=== PATIENT | female | born 2000 | race Caucasian/White ===

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

== ENCOUNTER → 2020-02-14 | Outpatient (CLI) | payer OTHER ==
[~2020-02-14] MED LIST: CYCL-707 PO; PRED5PAK PO
--- NOTE | 2020-02-15 03:05 | REP ---
REASON: Low back pain. Three views were obtained. Vertebral body height and alignment is within normal limits. The disc spaces are symmetric and well maintained. The pedicles are intact bilaterally. IMPRESSION: Unremarkable limited exam. Electronically Signed by Jad Yeh DO 02/15/2020 11:26 A
== END ==
LOC: M WUC 12:11
PROVIDERS: ATTEND Physician Assistant
DX: M54.5 Low back pain (principal)

== ENCOUNTER 2020-06-22 12:06 | Emergency (ER) | payer OTHER ==
[~2020-06-22] VITALS: Ht 165.1 cm; Wt 69.1 kg
[2020-06-22] MEDS ORDERED: PRENTAB9 PO (12:21)
[2020-06-22 12:55] LABS: HEMOGLOBIN 10.9 g/dl (12.0-15.5); MEAN CORPUSCULAR HGB CONC 30.3 g/dl (32.0-36.5); MEAN CORPUSCULAR VOLUME 76.1 fl (80.0-96.0); PLATELET COUNT, AUTOMATED 294 10^3/uL (150-450); RED BLOOD COUNT 4.73 10^6/uL (4.00-5.40)
[2020-06-22 13:24] LABS: BLOOD UREA NITROGEN 10 MG/DL (7-18); CALCIUM LEVEL 9.2 MG/DL (8.5-10.1); CARBON DIOXIDE LEVEL 27 MEQ/L (21-32); CHLORIDE LEVEL 109 MEQ/L (98-107); CREATININE FOR GFR 0.64 MG/DL (0.55-1.30); GLOMERULAR FILTRATION RATE > 60.0 (>60); GLUCOSE, FASTING 83 MG/DL (70-100); HCG, SERUM QUANTITATIVE 79 MIU/ML; POTASSIUM SERUM 4.1 MEQ/L (3.5-5.1); SODIUM LEVEL 140 MEQ/L (136-145)
[2020-06-22 13:27] LABS: BASO % 0.7 % (0.0-1.0); EOS % 0.7 % (0.0-3.0); LYMPH % 49.2 % (24.0-44.0); MONO # 0.5 10^3/uL (0.0-0.8); MONO % 8.8 % (0.0-5.0); NEUTROPHILS # 2.4 10^3/uL (1.5-8.5); NEUTROPHILS % 40.4 % (36.0-66.0)
[2020-06-22 13:32] LABS: PLATELET ESTIMATE NORMAL (NORMAL)
--- NOTE | 2020-06-22 14:07 | REP ---
INDICATION: vaginal bleeding. COMPARISON: None TECHNIQUE: Transvesical and transvaginal imaging FINDINGS: The uterus measures 6.5 x 3.1 x 4.8 cm. The parenchymal echo pattern is within normal limits. The endometrial echo complex measures 8 mm in greatest thickness. There is no evidence of an intrauterine gestational sac. The right ovary measures 3.3 x 1.8 x 2.4 cm and is within normal limits with an RI of 0.50. The left ovary measures 3.8 x 1.1 x 1.8 cm and is within normal limits with an RI 0.57. There is a trace amount of free fluid in the cul-de-sac likely physiologic. IMPRESSION: There is no evidence of an intrauterine or extrauterine . Findings are within normal limits. Follow-up is recommended if clinically relevant. <Electronically signed by Jad Yeh > 06/22/20 [id number]
[2020-06-22] MEDS ORDERED: FLAG500T PO (15:18)
[2020-06-22 15:39] LABS: CHLAMYDIA DNA AMPLIFICATION NEGATIVE (NEGATIVE); GC DNA AMPLIFICATION NEGATIVE (NEGATIVE)
[2020-06-22 16:00] VITALS: BP 101/60
== END 2020-06-22 16:07 | disposition home or self-care (01) ==
LOC: M ED 12:06
DX: O20.9 Hemorrhage in early pregnancy, unspecified (principal); O23.591 Infection of other part of genital tract in pregnancy, first trimester; Z3A.01 Less than 8 weeks gestation of pregnancy

== ENCOUNTER → 2020-06-24 | Outpatient (CLI) | payer OTHER ==
[~2020-06-24] MED LIST changes: +FLAG500T PO; +PRENTAB9 PO
== END ==
LOC: M PLALAB 09:24
PROVIDERS: ATTEND Physician Assistant
DX: Z32.00 Encounter for pregnancy test, result unknown (principal)

== ENCOUNTER 2020-12-06 13:22 | Emergency (ER) | payer OTHER ==
[~2020-12-06] VITALS: Ht 165.1 cm; Wt 67.3 kg
[2020-12-06] MEDS ORDERED: NS 1,000 ML IV ONE (14:10)
[2020-12-06] MEDS ORDERED: PROMETHAZINE INJ 25 MG/ML VIAL (J2550) IV ONE (14:10)
[2020-12-06 14:45] LABS: BASO % 0.3 % (0.0-1.0); HEMOGLOBIN 14.1 g/dl (12.0-15.5); LYMPH # 1.9 10^3/uL (1.5-5.0); LYMPH % 21.6 % (24.0-44.0); MEAN CORPUSCULAR HEMOGLOBIN 27.4 pg (27.0-33.0); MEAN CORPUSCULAR HGB CONC 33.6 g/dl (32.0-36.5); MEAN CORPUSCULAR VOLUME 81.6 fl (80.0-96.0); MONO # 0.7 10^3/uL (0.0-0.8); MONO % 7.3 % (2.0-8.0); NEUTROPHILS # 6.3 10^3/uL (1.5-8.5); NEUTROPHILS % 70.6 % (36.0-66.0); PLATELET COUNT, AUTOMATED 273 10^3/uL (150-450); RED BLOOD COUNT 5.15 10^6/uL (4.00-5.40); WHITE BLOOD COUNT 8.9 10^3/uL (4.0-10.0)
[2020-12-06 15:18] LABS: ALBUMIN 3.9 GM/DL (3.2-5.2); ALT/SGPT 25 U/L (12-78); BILIRUBIN,DIRECT 0.3 MG/DL (0.0-0.2); BILIRUBIN,TOTAL 0.9 MG/DL (0.2-1.0); BLOOD UREA NITROGEN 9 MG/DL (7-18); CALCIUM LEVEL 9.7 MG/DL (8.5-10.1); CARBON DIOXIDE LEVEL 21 MEQ/L (21-32); CHLORIDE LEVEL 105 MEQ/L (98-107); CREATININE FOR GFR 0.46 MG/DL (0.55-1.30); GLOMERULAR FILTRATION RATE > 60.0 (>60); GLUCOSE, FASTING 84 MG/DL (70-100); POTASSIUM SERUM 4.1 MEQ/L (3.5-5.1); SODIUM LEVEL 136 MEQ/L (136-145); TOTAL PROTEIN 8.1 GM/DL (6.4-8.2)
[2020-12-06] MEDS ORDERED: ONDANSETRON 4MG/2ML VIAL IV ONE (16:00)
[2020-12-06] MEDS ORDERED: REGL10TA6 PO (17:52)
[2020-12-06 18:40] VITALS: BP 106/64
== END 2020-12-06 18:43 | disposition home or self-care (01) ==
LOC: M ED 13:22
DX: O21.0 Mild hyperemesis gravidarum (principal); Z3A.14 14 weeks gestation of pregnancy
CPT/HCPCS: 80048; 80076; 81001; 85025; 87086; 96361; 96374; 96375; 99284; J2405

== ENCOUNTER 2021-06-09 07:34 | Inpatient (IN) | payer OTHER ==
[~2021-06-09] VITALS: Ht 165.1 cm; Wt 78.2 kg
[2021-06-09] VITALS (59 sets, daily range): BP systolic 82–142; BP diastolic 43–86
[~2021-06-09 07:34] MED LIST changes: +REGL10TA6 PO
[2021-06-09] MEDS ORDERED: HOME MED LIST COMPLETE! XX SCH (08:15)
[2021-06-09] MEDS ORDERED: OXYTOCIN DRIP 30 UNITS in IV 1 EA IV PRN ×4 (08:40)
--- OUTSIDE RECORDS SUMMARY | 2021-06-09 08:45 | CCD ---
Author Author [facility] Organization [facility] Address Unknown Phone Unavailable Support Name Relationship Address Phone UE Next Of Kin Unknown Unavailable KEEGAN GREEN Next Of Kin [address] [place] [address] [place] Next Of Kin [address] [place] [address] UN Next Of Kin Unknown Unavailable Gennaro CARVER CLEOPATRA Next Of Kin [address] [place] [address] ST Next Of Kin Unknown Unavailable KALANI BARRERA Next Of Kin [address] [place] [address] Re-disclosure Warning The records that you are about to access may contain information from federally-assisted alcohol or drug abuse programs. If such information is present, then the following federally mandated warning applies: This information has been disclosed to you from records protected by federal confidentiality rules (42 CFR part 2). The federal rules prohibit you from making any further disclosure of this information unless further disclosure is expressly permitted by the written consent of the person to whom it pertains or as otherwise permitted by 42 CFR part 2. A general authorization for the release of medical or other information is NOT sufficient for this purpose. The Federal rules restrict any use of the information to criminally investigate or prosecute any alcohol or drug abuse patient.The records that you are about to access may contain highly sensitive health information, the redisclosure of which is protected by Article 27-F of the [facility] Public Health law. If you continue you may have access to information: Regarding HIV / AIDS; Provided by facilities licensed or operated by the [facility] Office of Mental Health; or Provided by the [facility] Office for People With Developmental Disabilities. If such information is present, then the following [facility] mandated warning applies: This information has been disclosed to you from confidential records which are protected by state law. State law prohibits you from making any further disclosure of this information without the specific written consent of the person to whom it pertains, or as otherwise permitted by law. Any unauthorized further disclosure in violation of state law may result in a fine or fdc sentence or both. A general authorization for the release of medical or other information is NOT sufficient authorization for further disc losure. Family History Family Member Name Family Member Gender Family Member Status Date o f Status Description Data Source(s) Unknown Unknown Problem [facility] ([facility]) Unknown Unknown Problem [facility] ([facility] Medications No Information Insurance Providers Payer name Policy type / Coverage type Policy ID Covered republican ID Covered republican's relationship to joseph Policy Joseph Plan Information [employer] Commercial [id number] 2.0.1.294549.3.227.99.4877.7799.54096 Family Dependent [id number] [employer] Commercial [id number] 2.0.1.809764.3.227.99.4877.26830.0 Family Dependent [id number] [employer] Commercial [id number] 2.0.1.549423.3.227.99.4877.34176.0 Family Dependent [id number] [employer] Commercial [id number] 2.0.1.115818.3.227.99.4877.42939.0 Family Dependent [id number] [employer] Commercial [id number] 2.0.1.895062.3.227.99.4877.7799.86620 Family Dependent [id number] [employer] Commercial [id number] 2.840.1.731643.3.227.99.4877.01202.0 Family Dependent [id number] [employer] Commercial [id number] 2.840.1.361474.3.227.99.4877.13190.0 Family Dependent [id number] [employer] Commercial [id number] 2.0.1.808384.3.227.99.4877.7799.79047 Family Dependent [id number] [employer] Commercial [id number] 2.0.1.997378.3.227.99.4877.7799.06362 Family Dependent [id number] [employer] Commercial [id number] 2.0.1.021721.3.227.99.4877.17668.0 Family Dependent [id number] [employer] Commercial [id number] 2.0.1.644438.3.227.99.4877.7799.20468 Family Dependent [id number] [employer] Commercial [id number] Family Dependent [employer] Commercial [id number] 2.0.1.566628.3.227.99.4877.7799.42619 Family Dependent [id number] [employer] [id number] 2.0.1.978548.3.227.99.4877.46692.0 Family Dependent [id number] [employer] [id number] 2.0.1.895419.3.227.99.4877.82545.0 Family Dependent [id number] [employer] Commercial 41424 Family Dependent [employer] [id number] 2.0.1.775874.3.227.99.4877.7799.21482 Family Dependent [id number] [employer] [id number] 2.0.1.02743 3.3.227.99.4877.54862.0 Family Dependent [id number] [employer] [id number] ..1.071741.3.227.99.4877.7799.08002 Family Dependent [id number] [employer] [id number] ..1.664041.3.227.99 .4877.40335.0 Family Dependent [id number] [employer] [id number] ..1.991605.3.227.99 .4877.66612.0 Family Dependent [id number] [employer] [id number] ...004942.3.227.99.4877.7799.56866 Family Dependent [id number] [employer] 93569 Family Dependent [employer] [id number] ..1.983502.3.227.99 .4877.97475.0 Family Dependent [id number] [employer] [id number] ..1.475168.3.227.99.4877.7799.97079 Family Dependent [id number] [employer] [id number] .1.593774.3.227.99.4877.7799.09733 Family Dependent [id number] [employer] [id number] .1.579457.3.227.99 .4877.53579.0 Family Dependent [id number] [employer] [id number] .1.087421.3.227.99.4877.7799.60838 Family Dependent [id number] [employer] [id number] .1.513106.3.227.99.4877.7799.61732 Family Dependent [id number] [employer] [id number] 2..1.247470.3.227.99 .4877.60251.0 Family Dependent [id number] [employer] [id number] 2..1.244131.3.227.99 .4877.57511.0 Family Dependent [id number] [employer] [id number] 2..1.959596.3.227.99 .4877.90154.0 Family Dependent [id number] [employer] [id number] 2..1.565457.3.227.99 .4877.38578.0 Family Dependent [id number] [employer] [id number] 2..1.866582.3.227.99.4877.7799.35136 Family Dependent [id number] [employer] [id number] 2..1.021693.3.227.99.4877.7799.34810 Family Dependent [id number] [employer] 53703 Family Dependent [employer] [id number] ..1.580906.3.227.99 .4877.99180.0 Family Dependent [id number] [employer] [id number] ..1.072338.3.227.99 .4877.92609.0 Family Dependent [id number] [employer] [id number] 2..1.554543.3.227.99 .4877.18824.0 Family Dependent [id number] [employer] [id number] ..1.003163.3.227.99 .4877.02680.0 Family Dependent [id number] [employer] [id number] .0.1.355920.3.227.99 .4877.48804.0 Family Dependent [id number] [employer] [id number] ..1.080752.3.227.99.4877.7799.21756 Family Dependent [id number] [employer] [id number] .1.465951.3.227.99 .4877.68679.0 Family Dependent [id number] [employer] [id number] ..1.611153.3.227.99 .4877.35759.0 Family Dependent [id number] [employer] [id number] .1.977942.3.227.99 .4877.56290.0 Family Dependent [id number] [employer] [id number] .1.603168.3.227.99.4877.7799.70624 Family Dependent [id number] [employer] [id number] .1.399326.3.227.99.4877.7799.78695 Family Dependent [id number] [employer] [id number] .1.196598.3.227.99.4877.7799.66693 Family Dependent [id number] [employer] [id number] 2.1.205794.3.227.99.4 877.18277.0 Family Dependent [id number] [employer] [id number] 2.0.1.891032.3.227.99.4 877.7799.55611 Family Dependent [id number] [employer] [id number] 2.0.1.428288.3.227.99.4 877.7799.57714 Family Dependent [id number] [employer] [id number] 2.0.1.725084.3.227.99.4 877.7799.15052 Family Dependent [id number] [employer] [id number] .0.1.582255.3.227.99.4 877.7799.69004 Family Dependent [id number] [employer] [id number] 2.0.1.543036.3.227.99.4 877.21948.0 Family Dependent [id number] [employer] [id number] 44501 Family Dependent [id number] [employer] [id number] 2.0.1.256723.3.227.99.4 877.83733.0 Family Dependent [id number] [employer] [id number] 2.0.1.567196.3.227.99.4 877.40001.0 Family Dependent [id number] [employer] [id number] .0.1.771637.3.227.99.4 877.96010.0 Family Dependent [id number] [employer] [id number] .0.1.178607.3.227.99.4 877.7799.97950 Family Dependent [id number] [employer] [id number] 2.0.1.713660.3.227.99.4 877.7799.68264 Family Dependent [id number] [employer] [id number] 2.16.840.1.971099.3.227.99.4 877.42238.0 Family Dependent [id number] [employer] [id number] 2.16.840.1.279573.3.227.99.4 877.29921.0 Family Dependent [id number] [employer] [id number] 2.16.840.1.312394.3.227.99.4 877.52445.0 Family Dependent [id number] EXCELL I [id number] Self [id number] [facility] I [id number] Self [id number] [facility] Community Plan Health Maintenance Organization (HMO) [id number] 22 2.16.840.1.818380.3.227.99.4877.82448.0 Family Dependent [id number] MEDICAID [id number] Self [id number] [facility] Community Plan Health Maintenance Organization (HMO) [id number] 22 2.16.840.1.039964.3.227.99.4877.66143.0 Family Dependent [id number] [facility] Community Plan Health Maintenance Organization (HMO) [id number] 22 2.16.840.1.066062.3.227.99.4877.68764.0 Family Dependent [id number] [facility] Community Plan Health Maintenance Organization (HMO) [id number] 22 2.16.840.1.491600.3.227.99.4877.34374.0 Family Dependent [id number] [facility] Community Plan Health Maintenance Organization (HMO) [id number] 22 2.16.840.1.175153.3.227.99.4877.7799.72138 Family Dependent [id number] [facility] Community Plan Health Maintenance Organization (HMO) [id number] 22 2.16.840.1.139462.3.227.99.4877.7799.73436 Family Dependent [id number] [facility] Community Plan Health Maintenance Organization (HMO) [id number] 22 2.16.840.1.144677.3.227.99.4877.7799.54021 Family Dependent [id number] [facility] Community Plan Health Maintenance Organization (HMO) [id number] 22 2.16.840.1.118241.3.227.99.4877.7799.32116 Family Dependent [id number] [facility] Community Plan Health Maintenance Organization (O) [id number] 22 2.16.840.1.024352.3.227.99.4877.13246.0 Family Dependent [id number] [facility] Community Plan Health Maintenance Organization (HMO) [id number] 22 2.16.840.1.786020.3.227.99.4877.74562.0 Family Dependent [id number] [facility] Community Plan Health Maintenance Organization (O) [id number] 22 2.16.840.1.076697.3.227.99.4877.7799.99150 Family Dependent [id number] [facility] Community Plan Health Maintenance Organization (O) [id number] 22 2.16.840.1.852836.3.227.99.4877.57245.0 Family Dependent [id number] [facility] Community Plan Health Maintenance Organization (HMO) [id number] 22 2.16.840.1.291174.3.227.99.4877.57810.0 Family Dependent [id number] [facility] Community Plan Health Maintenance Organization (HMO) [id number] 22 2.16.840.1.450978.3.227.99.4877.7799.13294 Family Dependent [id number] [facility] Community Plan Health Maintenance Organization (O) [id number] Family Dependent Medicaid-Pcap Medicaid [id number] 2.16.840.1.296981.3.227.99.4877.7 799.80685 Self [id number] Medicaid-Pcap Medicaid [id number] 2.16.840.1.519340.3.227.99.4877.1898 4.0 Self [id number] Medicaid-Pcap Medicaid [id number] 2.16.840.1.477561.3.227.99.4877.1898 4.0 Self [id number] Medicaid-Pcap Medicaid [id number] 2.16.840.1.595182.3.227.99.4877.1898 4.0 Self [id number] Medicaid-Pcap Medicaid [id number] 2.16.840.1.899002.3.227.99.4877.1898 4.0 Self [id number] Medicaid-Pcap Medicaid [id number] Self Medicaid-Pcap Medicaid [id number] 2.16.840.1.803935.3.227.99.4877.7 799.43782 Self [id number] Medicaid-Pcap Medicaid [id number] 2.16.840.1.120480.3.227.99.4877.1898 4.0 Self [id number] Medicaid-Pcap Medicaid [id number] 2.16.840.1.458002.3.227.99.4877.7 799.22762 Self [id number] Medicaid-Pcap Medicaid [id number] 2.16840.1.189610.3.227.99.4877.1898 4.0 Self [id number] Medicaid-Pcap Medicaid [id number] 2.16.840.1.953940.3.227.99.4877.1898 4.0 Self [id number] Medicaid-Pcap Medicaid [id number] 2.16.840.1.193613.3.227.99.4877.7 799.11049 Self [id number] Medicaid-Pcap Medicaid [id number] 2.16.840.1.797572.3.227.99.4877.7 799.75850 Self [id number] Medicaid-Pcap Medicaid [id number] 2.16.840.1.553495.3.227.99.4877.7 799.88109 Self [id number] Medicaid-Pcap Medicaid [id number] 2.16.840.1.103762.3.227.99.4877.1898 4.0 Self [id number] [facility] Community Plan Health Maintenance Organization (HMO) [id number] 22 2.16.840.1.551025.3.227.99.4877.57606.0 Self [id number] [facility] Community Plan Health Maintenance Organization (HMO) 104 542 Self [facility] Community Plan Health Maintenance Organization (HMO) [id number] 22 2.16.840.1.081396.3.227.99.4877.25983.0 Self [id number] [facility] Community Plan Health Maintenance Organization (HMO) [id number] 22 2.16.840.1.598738.3.227.99.4877.05468.0 Self [id number] [facility] Community Plan Health Maintenance Organization (HMO) [id number] 22 2.16.840.1.151129.3.227.99.4877.01712.0 Self [id number] [facility] COMMUNITY PLAN [facility] [id number] MO2 [id number] [facility] Community Plan Health Maintenance Organization (HMO) [id number] 22 2.16.840.1.656657.3.227.99.4877.7799.89568 Self [id number] [facility] Community Plan Health Maintenance Organization (HMO) [id number] 22 2.16.840.1.871165.3.227.99.4877.20864.0 Self [id number] [facility] Community Plan Health Maintenance Organization (HMO) [id number] 22 2.16.840.1.539254.3.227.99.4877.77844.0 Self [id number] [facility] Community Plan Health Maintenance Organization (HMO) [id number] 22 2.16.840.1.829973.3.227.99.4877.7799.19759 Self [id number] [facility] Community Plan Health Maintenance Organization (HMO) [id number] 22 2.16.840.1.704884.3.227.99.4877.09531.0 Self [id number] [facility] Community Plan Health Maintenance Organization (HMO) [id number] 22 2.16.840.1.423242.3.227.99.4877.7799.30539 Self [id number] [facility] Community Plan Health Maintenance Organization (HMO) [id number] 22 2.16.840.1.482376.3.227.99.4877.7799.46426 Self [id number] [facility] Comm Plan Medicaid F [id number] SELF [id number] [facility] Community Plan Health Maintenance Organization (HMO) [id number] 22 2.16.840.1.986738.3.227.99.4877.7799.85668 Self [id number] [facility] Community Plan Health Maintenance Organization (HMO) [id number] 22 2.16.840.1.655363.3.227.99.4877.52295.0 Self [id number] [facility] Comm Plan Medicaid F [id number] SELF [id number] [facility] [id number] [facility] Community Plan Health Maintenance Organization (HMO) [id number] 22 2.16.840.1.733329.3.227.99.4877.7799.76716 Self [id number] [employer] [id number] 2.0.1.169325.3.227.99.4 877.76960.0 Self [id number] [employer] [id number] 2.0.1.239865.3.227.99.4 877.82851.0 Self [id number] [employer] [id number] 2.0.1.317635.3.227.99.4 877.7799.02773 Self [id number] [employer] [id number] 2.840.1.705471.3.227.99.4 877.28820.0 Self [id number] [employer] [id number] 2.0.1.989212.3.227.99.4 877.33491.0 Self [id number] [employer] [id number] 2.840.1.053618.3.227.99.4 877.7799.58689 Self [id number] [employer] [id number] 2.0.1.396879.3.227.99.4 877.09142.0 Self [id number] [employer] [id number] .0.1.900234.3.227.99.4 877.7799.43533 Self [id number] [employer] [id number] .0.1.204323.3.227.99.4 877.7799.82439 Self [id number] [employer] [id number] .0.1.111021.3.227.99.4 877.25376.0 Self [id number] [employer] [id number] ..1.161313.3.227.99.4 877.7799.14199 Self [id number] [employer] [id number] .1.451594.3.227.99.4 877.05967.0 Self [id number] EXCE[employer] I [id number] Self [id number] [employer] [id number] .1.880539.3.227.99.4 877.02579.0 Self [id number] [employer] [id number] .1.973006.3.227.99.4 877.7799.85251 Self [id number] [employer] .1.209756.3.227.99.4877.7799 .24751 Self [employer] [id number] ..1.884828.3.227.99.4 877.80653.0 Self [id number] [employer] [id number] .1.974464.3.227.99.4 877.51111.0 Self [id number] [employer] [id number] 2.16.840.1.306768.3.227.99.4 877.84040.0 Self [id number] [employer] [id number] 2.0.1.095432.3.227.99.4 877.70294.0 Self [id number] [employer] [id number] 2.0.1.239447.3.227.99.4 877.83610.0 Self [id number] [employer] [id number] 2.0.1.376177.3.227.99.4 877.28649.0 Self [id number] [employer] [id number] 2..1.999643.3.227.99.4 877.99629.0 Self [id number] [employer] [id number] 2..1.397847.3.227.99.4 877.34938.0 Self [id number] [employer] [id number] ..1.477133.3.227.99.4 877.7799.93978 Self [id number] [employer] [id number] 2..1.141345.3.227.99.4 877.7799.97522 Self [id number] [employer] [id number] ..1.283141.3.227.99.4 877.7799.68468 Self [id number] [employer] [id number] ..1.891890.3.227.99.4 877.7799.79260 Self [id number] [employer] [id number] 2..1.857810.3.227.99.4 877.7799.96280 Self [id number] [employer] [id number] 2.16.840.1.903771.3.227.99.4 877.7799.88322 Self [id number] [employer] Health Maintenance Organization (HMO) [id number] 00 2.16.840.1.202691.3.227.99.4877.7799.81855 Self [id number] [employer] Man[employer] Health Maintenance Organization (HMO) [id number] 00 2.16.840.1.958424.3.227.99.4877.99007.0 Self [id number] [employer] Managed Care Health Maintenance Organization (HMO) [id number] 00 2.16.840.1.889413.3.227.99.4877.7799.82257 Self [id number] [employer] Managed Care Health Maintenance Organization (HMO) [id number] 00 2.16.840.1.851917.3.227.99.4877.95049.0 Self [id number] [employer] Man[employer] Care Health Maintenance Organization (HMO) [id number] 00 2.16.840.1.814895.3.227.99.4877.7799.84052 Self [id number] [employer] Man[employer] Care Health Maintenance Organization (HMO) [id number] 00 2.16.840.1.553200.3.227.99.4877.58076.0 Self [id number] [employer] Man[employer] Care Health Maintenance Organization (HMO) [id number] 00 2.16.840.1.015318.3.227.99.4877.61819.0 Self [id number] [employer] Man[employer] Care Health Maintenance Organization (HMO) [id number] 00 2.16.840.1.329612.3.227.99.4877.34437.0 Self [id number] [employer] Managed Care Health Maintenance Organization (HMO) [id number] 00 2.16.840.1.326784.3.227.99.4877.93749.0 Self [id number] [employer] Managed Care Health Maintenance Organization (HMO) [id number] 00 2.16.840.1.188185.3.227.99.4877.54303.0 Self [id number] MVP Managed Care Health Maintenance Organization (HMO) [id number] 00 2.16840.1.552244.3.227.99.4877.57505.0 Self [id number] [employer] [id number] 2.840.1.604651.3.227.99 .4877.78891.0 Self [id number] [employer] [id number] 2.0.1.497808.3.227.99 .4877.67441.0 Self [id number] Blue Cross Blue Shield P [id number] SELF [id number] [employer] YOE 2.840.1.561270.3.227.99.4 877.41615.0 Family Dependent YOE [employer] YOE 2.0.1.996243.3.227.99.4 877.53236.0 Family Dependent YOE [employer] YOE 2.0.1.596186.3.227.99.4 877.19762.0 Family Dependent YOE [id number] [employer] YOE 2.840.1.479312.3.227.99.4 877.87415.0 Family Dependent YOE MVP [facility] [id number] SP [id number] [employer] BCBS B [id number] S VYB [id number] [employer] [place] 306/806 [id number] SP [id number] [employer] YOE 2.0.1.097949.3.227.99.4 877.7799.18527 Family Dependent Cleopatra Carver YOE [employer] Commercial [id number] 2.840.1.418835.3.227.99.4877.7799.99128 Family Dependent Cleopatra Carver [id number] [employer] Commercial [id number] .1.539616.3.227.99.4877.7799.04327 Family Dependent Cleopatra Carver [id number] [employer] [id number] .1.496926.3.227.99.4877.7799.51384 Family Dependent Cleopatra Carver [id number] [employer] [id number] .1.823151.3.227.99.4 877.7799.98664 Family Dependent Cleopatra Carver [id number] Medicaid-Pcap Medicaid [id number] .1.918702.3.227.99.4877.7 799.69969 Self [id number] [facility] Community Plan Health Maintenance Organization (HMO) [id number] 22 .1.440426.3.227.99.4877.7799.13564 Self [id number] [employer] [id number] .1.051112.3.227.99.4 877.7799.18018 Self [id number] [facility] COMMUNITY PLAN [facility] [id number] SP [id number] [facility] [id number] [facility] [id number] [employer] [id number] 34277 Family Dependent [id number] [facility] [place] [facility] Commercial YOE .1.259838.3.227.99.4 [id number] Family Dependent YOE BCBS CHILD HEALTH PLUS [id number] SP [id number] [place] 306/806 [id number] SP [id number] SELF PAY ONLY [id number] SP [id number] BS Child Health Plus Health Maintenance Organization (HMO) [id number] Self [id number] [place] 306/806 [id number] SP [id number] BCBS/[employer] Medigap Part B [id number] Self [id number] BCBS [place] HMO [id number] SP [id number] [facility] COMMUNITY PLAN [id number] SP [id number] MEDICAID [place] [id number] SP [id number] [facility] COMMUNITY PLAN UNAVAILABLE UNAVAILABLE [facility] COMM PLAN [place] W [id number] S [id number] [facility] [place] [facility] Commercial YOE 2..1.829107.3.227.99.4 [id number] Family Dependent YOE Medicaid [facility] Healthcare S D [id number] SELF [id number] MEDICAID [id number] SP [id number] HMO BLUE [id number] SP [id number] [facility] [place] [facility] O [id number] S [id number] [facility] [place] [employer]P Commercial YOE [id number] [id number] Family Dependent YOE [place] [facility] Commercial YOE 2.0.1.656464.3.227.99.4 [id number] Family Dependent YOE [facility] [place] [facility] Commercial YOE 2.0.1.055622.3.227.99.4 [id number] Family Dependent YOE HMO BLUE [id number] SP [id number] [place] [facility] SP HMO BLUE [id number] SP [id number] [facility] [place] CHP Commercial YOE 2.0.1.471345.3.227.99.4 [id number] Family Dependent YOE BS [place] [facility]P Commercial YOE 2.0.1.339723.3.227.99.4 [id number] Family Dependent YOE EXCELLUS BCBS B [id number] S [id number] O UNAVAILABLE UNAVAILA BLE [place] [employer] [facility] O [id number] C [id number] BS [place] P Commercial YOE [id number]9.4 [id number] Family Dependent YOE BC/BS OF [place] P [id number] C ZF [id number] BS [place] P Commercial YOE [id number] Family Dependent YOE BS [place] P [employer] YOE [phone] Family Dependent YOE Problems, Conditions, and Diagnoses No Information Surgeries/Procedures No Information Results No Information Social History No Information
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
[2021-06-09 10:57] LABS: HEMATOCRIT 36.8 % (36.0-47.0); HEMOGLOBIN 11.8 g/dl (12.0-15.5); MEAN CORPUSCULAR HEMOGLOBIN 25.2 pg (27.0-33.0); MEAN CORPUSCULAR HGB CONC 32.1 g/dl (32.0-36.5); MEAN CORPUSCULAR VOLUME 78.6 fl (80.0-96.0); PLATELET COUNT, AUTOMATED 291 10^3/uL (150-450); RED BLOOD COUNT 4.68 10^6/uL (4.00-5.40); WHITE BLOOD COUNT 10.3 10^3/uL (4.0-10.0)
--- NOTE | 2021-06-09 13:24 | IPNPDOC ---
Obstetrical Progress Note Date of Service Jun 09, 2021 Subjective Patient feeling contractions, uncomfortable with pain. Otherwise is tolerating labor and has no complaints. Objective Vital Signs Date Time Temp Pulse Resp B/P (MAP) Pulse Ox O2 Delivery O2 Flow Rate FiO2 06/09/21 12:08 79 16 136/66 (89) 06/09/21 11:40 97.8 Assessment Heart Rate (FHR): 130 Variability: Moderate Accelerations: Positive Decelerations: None Heart Rate Tracing: Category I Tocometer Contractions: Yes Frequency: regular, every 3-7 min. Sterile Vaginal Examination Dilation: 4 cm Effacement (%): 50% Station: -1 Cervical Consistency: Soft Cervical Position: Middle Postion/Presentation: Cephalic presentation Assessment and Plan Age: 21 : 4 Term: 0 Pre-term: 0 Abortions: 3 Livin Weeks & Days 40+5 Status: Reassuring Group B Streptococcus: Negative Anticipate: Vaginal Delivery Additional Comments Discussed pain control in labor including IV pain medications and epidural; she desires an epidural so we will contact anesthesia. Routine intrapartum care reevaluate labor in 4-6 hours or sooner as needed anticipate vaginal delivery. ALESHIA OMER DO Jun 09, 2021 13:24
[2021-06-09] MEDS ORDERED: LR 500 ML IV ONE (13:40)
[2021-06-09] MEDS ORDERED: OXYTOCIN DRIP 30 UNITS in IV 1 EA IV SCH (13:40)
[2021-06-09] MEDS ORDERED: LR 1,000 ML IV SCH (13:40)
[2021-06-09] MEDS ORDERED: FENTANYL 2MCG/ML ROPIVACAINE 0.2% IN 0.9% NACL 100ML IVBAG As Ordered ONE (14:04)
[2021-06-09] MEDS ORDERED: LACTATED RINGER'S 1000 ML IV PRN (14:15)
[2021-06-09] MEDS ORDERED: NALOXONE INJ 0.4MG/1ML VIAL (J2310 PER 1MG) IV PRN (14:15)
[2021-06-09] MEDS ORDERED: REFRIGERATOR IV KEYS XX PRN (14:15)
[2021-06-09] MEDS ORDERED: EPIDURAL COMMENT XX SCH (14:15)
[2021-06-09] MEDS ORDERED: ONDANSETRON 4MG/2ML VIAL IV PRN (14:15)
[2021-06-09] MEDS ORDERED: diphenhydrAMINE 50MG/ML VIAL (J1200) IV PRN (14:15)
[2021-06-09] MEDS ORDERED: EPIDURAL/PCA KEYS XX PRN (14:15)
[2021-06-09] MEDS: LR 1,000 ML IV SCH ×2 (14:41→17:51)
[2021-06-09] MEDS: FENTANYL/ROPIVACAINE/NACL BAG 100 ML EPIDURAL SCH ×2 (14:42→21:34)
[2021-06-09] MEDS: ePHEDrine SULFATE 25 MG/5 ML(5MG/ML) SYRINGE IV PRN ×5 (15:08→16:00)
[2021-06-09] MEDS ORDERED: ePHEDrine SULFATE 25 MG/5 ML(5MG/ML) SYRINGE IVP PRN (16:10)
[2021-06-09] MEDS ORDERED: LACTATED RINGER'S 1000 ML IV ONE (16:15)
--- NOTE | 2021-06-09 19:37 | IPNPDOC ---
Obstetrical Progress Note Date of Service Jun 09, 2021 Subjective Mehnaz Gibson comfortable with contractions, is aware of them but not painful. Otherwise feels well and denies any complaints. Objective Vital Signs Date Time Temp Pulse Resp B/P (MAP) Pulse Ox O2 Delivery O2 Flow Rate FiO2 06/09/21 18:32 97.9 06/09/21 18:14 95 117/68 (84) 06/09/21 15:16 18 Assessment Heart Rate (FHR): 140 Variability: Moderate Accelerations: Positive Decelerations: None Heart Rate Tracing: Category I Tocometer Contractions: Yes Frequency: regular, every 3-7 min. Sterile Vaginal Examination Dilation: 7 cm Effacement (%): 90% Station: -1 Cervical Consistency: Soft Cervical Position: Anterior Postion/Presentation: Cephalic presentation Assessment and Plan Age: 20 : 4 Term: 0 Pre-term: 0 Abortions: 3 Livin Weeks & Days 40+5 Status: Reassuring Group B Streptococcus: Negative Anticipate: Vaginal Delivery Additional Comments Patient making progress now on pitocin of 10. Cervix now 7cm, 90% effaced. Will continue pitocin and reevaluate labor in 2-4 hours or sooner as needed. We discussed r/b/a to amniotomy including cord prolapse and emergent for future reference. Routine intrapartum care consider artificial rupture of membranes if progress slows/stops anticipate vaginal delivery ALESHIA OMER DO Jun 09, 2021 19:37
[2021-06-10] VITALS (14 sets, daily range): BP systolic 102–133; BP diastolic 56–80
--- NOTE | 2021-06-10 00:54 | DNPDOC ---
[facility] Delivery Note Delivery Note DATE OF DELIVERY: 09JUN2021 PREDELIVERY DIAGNOSIS: 40+5 weeks' gestation and labor. POST DELIVERY DIAGNOSIS: Delivered. PROCEDURE: Spontaneous vaginal delivery AUTOMATION DESIGN ENGINEER: Jared Barrett DO ANESTHESIA: epidural ESTIMATED BLOOD LOSS: 450 mL. FINDINGS: 8 pound 6 ounce F infant, Score 9/9, retained placenta with manual extraction DELIVERY SUMMARY: Called to the room by nursing as the head was . Over the next several pushes the head delivered and restituted DIANE. The anterior shoulder delivered without difficulty followed by the corpus. The was placed on the maternal chest and dried/stimulated/bulb suction as needed. After one minute delay the cord was clamped and cut by the father of the baby. A examination of the perineum revealed no midline tears and hemostasis was noted; I was called to another room for imminent delivery and requested the nurse to monitor Ms. Gibson for hemorrhage in my absence. After about 20 minutes in the other delivery I returned. Gentle cord traction failed to deliver the placenta and I felt the beginnings of crepitus along the cord. After 30 minutes I informed the Ms. Gibson that I would be attempting manual extraction of the placenta. Her epidural seemed adequate. I felt a plane that was encouraging to separate the placenta however could not reach the fundus due to patient discomfort. Anesthesia was consulted and pain control achieved. On a second attempt I could follow the cleavage plane all the way to the fundus and removed the placenta apparently intact. Some trailing membranes were noted and removed with ring forceps. Detailed review on the delivery table was performed immediately and there appeared to be no missing cotyledons. A transabdominal ultrasound was performed at the bedside revealing no apparent retained products. Pitocin was started and bimanual massage notd firm uterus with hemostasis. Perineal inspection revealed bilateral labial abrasions hemostatic. The maternal- dyad was noted to be in good condition. All counts were correct. DO NEGRA Deshpande BRADLEY J. DO Jun 10, 2021 00:54
[2021-06-10] MEDS ORDERED: MEASLES,MUMPS,RUBELLA VACCINE INJ (MMR-II) (90707) SC SCH (01:15)
[2021-06-10] MEDS ORDERED: ONDANSETRON 4MG/2ML VIAL IV PRN (01:15)
[2021-06-10] MEDS ORDERED: RHOGAM 300 MCG (1500 IU) INJ (J2790) IM SCH (01:15)
[2021-06-10] MEDS ORDERED: LR 1,000 ML IV SCH (01:15)
[2021-06-10] MEDS ORDERED: DIBUCAINE 1% OINTMENT 30GM TOP PRN (01:15)
[2021-06-10] MEDS ORDERED: PROMETHAZINE 25 MG TAB PO PRN (01:15)
[2021-06-10] MEDS ORDERED: DOCUSATE SODIUM 100MG CAPSULE PO PRN (01:15)
[2021-06-10] MEDS: ACETAMINOPHEN 500 MG TAB PO SCH ×4 (02:08→18:07)
[2021-06-10] MEDS: IBUPROFEN 800 MG TAB PO SCH ×3 (03:56→18:07)
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
[2021-06-10] MEDS: PRENATAL VITAMINS CHEWABLE TABLET PO SCH (08:00)
[2021-06-11] MEDS: ACETAMINOPHEN 500 MG TAB PO SCH ×2 (01:02→07:39)
[2021-06-11] MEDS: IBUPROFEN 800 MG TAB PO SCH ×2 (02:38→11:21)
[2021-06-11 06:00] VITALS: BP 108/61
--- NOTE | 2021-06-11 07:12 | OBDS ---
[facility] Obstetrical Discharge Sum. Obstetrical Discharge Summary VDRL: ABO Blood Group (o) Rh: Positive Rubella: Immune A/P, Post Course List any complications Admission diagnosis: 40+5 weeks' gestation and labo Discharge diagnosis: , retained placenta with manual extraction Condition at Discharge: STABLE Discharge Instructions: Home Activity: PELVIC REST Diet: REG Medications: AT HOME Follow-up: 6WK PP Other: Mehnaz Gibson is a 20-year-old 4 now Para 1031 status post uncomplicated spontaneous vaginal delivery at 40+5 weeks' at approximately 2332 hours on 09JUN2021 of a female 8 pounds 6 ounces (3810 grams) with post vaginal laceration and repair, doing well day # 2. She has been ambulating, voiding spontaneously without issue and tolerating regular diet. Breast feeding without issue. Reports lochia is like a normal period. Denies fevers, uterine tenderness or foul vaginal discharge. DATE OF DELIVERY: 09JUN2021 PREDELIVERY DIAGNOSIS: 40+5 weeks' gestation and labor. POST DELIVERY DIAGNOSIS: Delivered. PROCEDURE: Spontaneous vaginal delivery FASHION EDITOR: Jared Barrett DO ANESTHESIA: epidural ESTIMATED BLOOD LOSS: 450 mL. FINDINGS: 8 pound 6 ounce F , Score 9/9, retained placenta with manual extraction FRANSISCA BREWER MD Jun 11, 2021 07:12
[2021-06-11 08:08] LABS: HEMATOCRIT 30.5 % (36.0-47.0); MEAN CORPUSCULAR HEMOGLOBIN 24.9 pg (27.0-33.0); MEAN CORPUSCULAR HGB CONC 31.1 g/dl (32.0-36.5); MEAN CORPUSCULAR VOLUME 80.1 fl (80.0-96.0); PLATELET COUNT, AUTOMATED 275 10^3/uL (150-450); RED BLOOD COUNT 3.81 10^6/uL (4.00-5.40); WHITE BLOOD COUNT 11.8 10^3/uL (4.0-10.0)
[2021-06-11 08:18] LABS: HEMOGLOBIN 9.5 g/dl (12.0-15.5)
[2021-06-11] MEDS: PRENATAL VITAMINS CHEWABLE TABLET PO SCH (08:44)
== END 2021-06-11 13:05 | disposition home or self-care (01) | DRG 807 ==
LOC: M LDO 07:34 → M LDI 08:42 → M OBS 06-10 03:22
PROVIDERS: ADMIT Obstetrics & Gynecology; ATTEND Obstetrics & Gynecology
PROC: 10D17Z9 Manual Extraction of Products of Conception, Retained, Via Natural or Artificial Opening (ICD-10-PCS; principal; 2021-06-09)
PROC: 10E0XZZ Delivery of Products of Conception, External Approach (ICD-10-PCS; 2021-06-09)
DX: O48.0 Post-term pregnancy (principal); Z37.0 Single live birth; Z3A.40 40 weeks gestation of pregnancy; O73.0 Retained placenta without hemorrhage

== ENCOUNTER 2021-07-22 13:50 | Emergency (ER) | payer OTHER ==
[~2021-07-22] VITALS: Ht 165.1 cm; Wt 63.6 kg
[2021-07-22 16:20] LABS: BASO % 0.1 % (0.0-1.0); EOS % 0.1 % (0.0-3.0); HEMATOCRIT 39.5 % (36.0-47.0); HEMOGLOBIN 12.2 g/dl (12.0-15.5); LYMPH # 1.4 10^3/uL (1.5-5.0); LYMPH % 11.3 % (24.0-44.0); MEAN CORPUSCULAR HEMOGLOBIN 24.1 pg (27.0-33.0); MEAN CORPUSCULAR HGB CONC 30.9 g/dl (32.0-36.5); MEAN CORPUSCULAR VOLUME 77.9 fl (80.0-96.0); MONO # 0.6 10^3/uL (0.0-0.8); MONO % 4.4 % (2.0-8.0); NEUTROPHILS # 10.4 10^3/uL (1.5-8.5); NEUTROPHILS % 83.5 % (36.0-66.0); PLATELET COUNT, AUTOMATED 305 10^3/uL (150-450); RED BLOOD COUNT 5.07 10^6/uL (4.00-5.40); WHITE BLOOD COUNT 12.4 10^3/uL (4.0-10.0)
[2021-07-22 16:55] LABS: ALBUMIN 3.9 GM/DL (3.2-5.2); ALT/SGPT 49 U/L (12-78); BILIRUBIN,DIRECT 0.2 MG/DL (0.0-0.2); BILIRUBIN,TOTAL 0.5 MG/DL (0.2-1.0); BLOOD UREA NITROGEN 9 MG/DL (7-18); CALCIUM LEVEL 9.4 MG/DL (8.5-10.1); CARBON DIOXIDE LEVEL 27 MEQ/L (21-32); CHLORIDE LEVEL 106 MEQ/L (98-107); CREATININE FOR GFR 0.51 MG/DL (0.55-1.30); GLOMERULAR FILTRATION RATE > 60.0 (>60); GLUCOSE, FASTING 89 MG/DL (70-100); LIPASE 85 U/L (73-393); POTASSIUM SERUM 4.4 MEQ/L (3.5-5.1); SODIUM LEVEL 140 MEQ/L (136-145); TOTAL PROTEIN 8.1 GM/DL (6.4-8.2)
[2021-07-22] MEDS ORDERED: GI COCKTAIL 50ML BTL(HYOSCYAMINE/MAALOX/LIDOCAINE VISCOUS)(1:3:1) PO ONE (18:10)
[2021-07-22] MEDS ORDERED: PANTOPRAZOLE 40MG VIAL (C9113 PER 1) IV ONE (18:10)
[2021-07-22] MEDS ORDERED: MORPHINE 4 MG/ML 1ML VIAL/SYRINGE (J2270) IV ONE (18:10)
[2021-07-22] MEDS ORDERED: ISOVUE-370 76% 100ML VIAL As Ordered ONE (18:25)
[2021-07-22 18:32] LABS: HCG, SERUM QUALITATIVE NEGATIVE (NEGATIVE)
[2021-07-22 19:06] LABS: CK-MB VALUE MASS < 1.0 NG/ML (<3.6); CPK CREATINE PHOSPHOKINASE 53 U/L (26-192); MB/CK RELATIVE INDEX 1.89 (< OR =4)
--- NOTE | 2021-07-22 20:06 | REPVR ---
PROCEDURE INFORMATION: Exam: CTA Chest With Contrast Exam date and time: 07/22/2021 6:54 PM Age: 21 years old Clinical indication: Pain; Angina pectoris; Additional info: Pleuritic chest pain TECHNIQUE: Imaging protocol: Computed tomographic angiography of the chest with contrast. 3D rendering (Not supervised by radiologist): MIP and/or 3D reconstructed images were created by the technologist. Radiation optimization: All CT scans at this facility use at least one of these dose optimization techniques: automated exposure control; mA and/or kV adjustment per patient size (includes targeted exams where dose is matched to clinical indication); or iterative reconstruction. Contrast material: ISOVUE 370; Contrast volume: 100 ml; Contrast route: INTRAVENOUS (IV); COMPARISON: CR Chest, 2 view PA, Lat 10/13/2018 10:09 PM FINDINGS: Pulmonary arteries: There is no evidence of filling defects within the pulmonary arterial circulation to suggest pulmonary embolism. Aorta: No aortic aneurysm. No aortic dissection. Lungs: No lung consolidation. Pleural spaces: No pleural effusion or pneumothorax. Heart: Unremarkable. No cardiomegaly. No pericardial effusion. Mediastinal space: Probable residual thymic tissue in the anterior mediastinum. Lymph nodes: No mediastinal or hilar lymphadenopathy. Intraperitoneal space: Upper abdominal organs will be described on the abdominopelvic CT report. Bones/joints: Unremarkable. No acute fracture. Soft tissues: Unremarkable. IMPRESSION: No evidence of pulmonary emboli or pneumonia. Electronically signed by: Keily Kulkarni On 07/22/2021 20:05:06 PM
--- NOTE | 2021-07-22 20:09 | REPVR ---
PROCEDURE INFORMATION: Exam: CT Abdomen And Pelvis With Contrast Exam date and time: 07/22/2021 6:54 PM Age: 21 years old Clinical indication: Abdominal pain; Epigastric; Additional info: Epigastric pain TECHNIQUE: Imaging protocol: Computed tomography of the abdomen and pelvis with contrast. Radiation optimization: All CT scans at this facility use at least one of these dose optimization techniques: automated exposure control; mA and/or kV adjustment per patient size (includes targeted exams where dose is matched to clinical indication); or iterative reconstruction. Contrast material: ISOVUE 370; Contrast volume: 100 ml; Contrast route: INTRAVENOUS (IV); COMPARISON: CT ABD PELVIS W/O CONTRAST 09/06/2016 10:29 PM FINDINGS: Lungs: No lesions of the lung bases. Liver: There are no focal liver lesions although there may be mild periportal edema. Gallbladder and bile ducts: Small gallstones are seen layering in the dependent portion of the gallbladder. Pancreas: The pancreas is normal. Spleen: The spleen is unremarkable. Adrenal glands: The adrenal glands are unremarkable. Kidneys and ureters: The kidneys are unremarkable. Stomach and bowel: There is no evidence of intestinal obstruction. Appendix: No evidence of appendicitis. Intraperitoneal space: Unremarkable. No free air. No significant fluid collection. Vasculature: The aorta is unremarkable. Lymph nodes: Unremarkable. No enlarged lymph nodes. Urinary bladder: Urinary bladder is decompressed and therefore not well assessed. Reproductive: Uterus and adnexae are not well assessed by CT. Bones/joints: Unremarkable. No acute fracture. Soft tissues: There is a fat-containing umbilical hernia. IMPRESSION: 1. Cholelithiasis. 2. There may be mild periportal edema. 3. Uterus and ovaries appear prominent which is typical for age. They are not well assessed by CT. Electronically signed by: Keily Kulkarni On 07/22/2021 20:09:16 PM
--- NOTE | 2021-07-22 21:27 | REPVR ---
PROCEDURE INFORMATION: Exam: US Abdomen, Limited; Right Upper Quadrant Exam date and time: 07/22/2021 9:16 PM Age: 21 years old Clinical indication: Abdominal pain; Acute; Additional info: Ruq pain TECHNIQUE: Imaging protocol: US abdomen. Real time ultrasound with image documentation. Limited exam focused on the right upper quadrant. COMPARISON: CT ABD/PEL W/IV CONTRAST ONLY 07/22/2021 6:46 PM FINDINGS: Liver: No focal liver lesions are apparent. Gallbladder: Small gallstones are seen in the gallbladder which appear mobile. There is no wall thickening. Common bile duct: The common bile duct is enlarged measuring 7.6 mm in width. An echogenic structure has been measured and labeled common bile duct. It measures 6 mm and may represent a common bile duct stone. There is no record of a sonographic Butt sign. Pancreas: Visualized pancreas is unremarkable. Right kidney: The right kidney is normal appearance measuring 10.5 cm in length. IMPRESSION: Cholelithiasis without gallbladder wall thickening however there is dilatation of the common bile duct to 7.6 mm and there may be a 6 mm calculus in the common bile duct. Electronically signed by: Keily Kulkarni On 07/22/2021 21:27:15 PM
--- NOTE | 2021-07-23 00:56 | REPVR ---
PROCEDURE INFORMATION: Exam: MR Abdomen Without Contrast, Biliary System Exam date and time: 07/22/2021 11:20 PM Age: 21 years old Clinical indication: Abdominal pain; Acute; Additional info: Upper abd pain, R/O choledocholithiasis TECHNIQUE: Imaging protocol: MR of the abdomen without contrast. Exam focused on the biliary system and pancreatic ducts. Routine 3D-MRCP images were acquired and processed without radiologist supervision. COMPARISON: 1. CT ABD/PEL W/IV CONTRAST ONLY 07/22/2021 6:46 PM 2. GALLBLADDER US 07/22/2021 9:00:13 PM FINDINGS: Liver: Unremarkable. No liver lesion is identified. The contour of the liver is smooth. No hepatomegaly is noted. Gallbladder and bile ducts: Multiple gallstones are present in the distended gallbladder. No gallbladder wall thickening, pericholecystic fluid, or inflammatory changes are noted around the gallbladder. There is a 5 mm calculus in the distal portion of the common bile duct. The common bile duct is dilated and measures up to 9 mm in diameter. No intrahepatic biliary ductal dilation is noted. Pancreas: Normal. No dilation of the main pancreatic duct is noted. Spleen: No splenic lesion is noted. The spleen is enlarged and measures 13.5 cm. Adrenals: Normal. No adrenal mass is noted. Kidneys and ureters: The kidneys are normal in appearance. No renal lesion. No hydronephrosis. Stomach and bowel: The imaged loops of small and large bowel are unremarkable. The bowel was not fully imaged. Intraperitoneal space: No fluid collection in the abdomen. Retroperitoneal space: Unremarkable. Arteries: No abdominal aortic aneurysm. Lymph nodes: Normal. No enlarged lymph nodes. Bones/joints: The bone marrow signal is unremarkable. Soft tissues: Unremarkable. IMPRESSION: 1. Cholelithiasis without evidence for cholecystitis. 2. Choledocholithiasis and dilation of the common bile duct (9 mm). 3. Splenomegaly. Electronically signed by: Edgar Mcallister On 07/23/2021 00:55:53 AM
[2021-07-23] MEDS ORDERED: PIPERACILLIN/TAZOBACTAM SOD 4.5 GM in D5W MINI-BAG PLUS 50 ML IV ONE (02:00)
[2021-07-23 02:38] VITALS: BP 114/64
[2021-07-23 03:03] LABS: RSV AMPLIFICATION NEGATIVE (NEGATIVE)
--- NOTE | 2021-07-23 05:57 | ECGEPIP ---
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
== END 2021-07-23 03:01 | disposition short-term general hospital (02) ==
LOC: M ED 13:50
DX: K80.50 Calculus of bile duct without cholangitis or cholecystitis without obstruction (principal); Z91.040 Latex allergy status
CPT/HCPCS: 71275; 74177; 74181; 76705; 80048; 80076; 82550; 82553; 83690; 84484; 84703; 85025; 87631; 93005; 96365; 96375; 99285; C9113; J2270; J2543; Q9967

== ENCOUNTER 2023-12-15 21:19 | Emergency (ER) | payer OTHER ==
[~2023-12-15] VITALS: Ht 165.1 cm; Wt 65.9 kg
[2023-12-15 22:08] LABS: BASO % 0.3 % (0.0-1.0); HEMATOCRIT 42.8 % (36.0-47.0); HEMOGLOBIN 14.9 g/dl (12.0-15.5); LYMPH # 0.5 10^3/uL (1.5-5.0); LYMPH % 5.2 % (24.0-44.0); MEAN CORPUSCULAR HEMOGLOBIN 28.9 pg (27.0-33.0); MEAN CORPUSCULAR HGB CONC 34.8 g/dl (32.0-36.5); MEAN CORPUSCULAR VOLUME 83.1 fl (80.0-96.0); MONO # 0.8 10^3/uL (0.0-0.8); MONO % 7.5 % (2.0-8.0); NEUTROPHILS # 8.7 10^3/uL (1.5-8.5); NEUTROPHILS % 86.7 % (36.0-66.0); PLATELET COUNT, AUTOMATED 288 10^3/uL (150-450); RED BLOOD COUNT 5.15 10^6/uL (4.00-5.40)
[2023-12-15 22:47] LABS: ALBUMIN 4.2 G/DL (3.2-5.2); ALKALINE PHOSPHATASE 78 U/L (46-116); ALT/SGPT 20 U/L (7.0-40); AST/SGOT 11 U/L (<34); BILIRUBIN,TOTAL 1.3 MG/DL (0.3-1.2); BLOOD UREA NITROGEN 15 MG/DL (9-23); CALCIUM LEVEL 8.9 MG/DL (8.5-10.1); CARBON DIOXIDE LEVEL 24 MMOL/L (20-31); CHLORIDE LEVEL 103 MMOL/L (98-107); CREATININE FOR GFR 0.65 MG/DL (0.55-1.30); GLOMERULAR FILTRATION RATE > 60.0 (>60); GLUCOSE, FASTING 102 MG/DL (60-100); POTASSIUM SERUM 3.2 MMOL/L (3.5-5.1); SODIUM LEVEL 136 MMOL/L (136-145); TOTAL PROTEIN 7.7 G/DL (5.7-8.2)
[2023-12-16] MEDS: ONDANSETRON 4MG ORAL DISINTEGRATING TAB PO ONE (00:08)
[2023-12-16] MEDS: NS 1,000 ML IV ONE (00:09)
[2023-12-16] MEDS ORDERED: ONDA4TAB6 PO (01:51)
[2023-12-16] MEDS ORDERED: PROG1CAP9 PO (01:51)
[2023-12-16 02:06] VITALS: BP 105/52; TEMP 97.4; O2SAT 97
== END 2023-12-16 02:13 | disposition home or self-care (01) ==
LOC: M ED 21:19
DX: O21.1 Hyperemesis gravidarum with metabolic disturbance (principal); Z91.040 Latex allergy status; Z79.899 Other long term (current) drug therapy